=== PATIENT | female | born 1940 | race Caucasian/White ===

== ENCOUNTER → 2017-01-10 | Outpatient (CLI) | payer MEDICARE, OTHER ==
[~2017-01-10] MED LIST: AMOX875T PO; ASPI-496 PO; CALC500T26 PO; DIPH25CA61 PO; DOCO100C PO; DORZ10DR3 EACHEYE; ESOM40CA PO; ESTR1TAB36 PO; GINK60TA PO; LACT1CAP35 PO; LATA2.5D3 EACHEYE; LEVO100T PO; LIOT5TAB6 PO; LUTE20TA PO; MULT-516 PO; ONDA4TAB7 PO; POTA99TA8 PO; TIMO5DRO5 EACHEYE; VITA1TAB3 PO; [UNRECOGNIZED DRUG - CODE] PO; glaucoma eye drops EACHEYE; mucinex PO
== END | disposition home or self-care (01) ==
LOC: STAR 09:51
PROVIDERS: ATTEND Orthopaedic Surgery
DX: Z01.810 Encounter for preprocedural cardiovascular examination (principal)
CPT/HCPCS: 93005

== ENCOUNTER 2017-01-15 05:19 | Day surgery (SDC) | payer MEDICARE ==
[2017-01-10 10:30] VITALS: BP 114/69
[~2017-01-15] VITALS: Ht 166.4 cm; Wt 65.0 kg
[2017-01-15] MEDS ORDERED: LACTATED RINGERS 1,000 ML IV SCH (05:55)
[2017-01-15] MEDS ORDERED: LIDOCAINE 1%, 2ML SQ PRN (06:00)
[2017-01-15] MEDS ORDERED: BUPIVACAINE/PF 0.5% ONE (06:11)
[2017-01-15] MEDS ORDERED: BACITRACIN 50,000 UNIT ONE (06:12)
[2017-01-15] MEDS ORDERED: BUPIVACAINE/PF-EPI 0.25% 1:200K ONE (06:12)
[2017-01-15] MEDS ORDERED: LIDOCAINE/PF 1%, 30ML ONE (06:12)
[2017-01-15] MEDS ORDERED: FENTANYL PF 250 MCG/5ML ONE (06:48)
[2017-01-15] MEDS ORDERED: MIDAZOLAM 1 MG/ML, 2ML ONE (06:49)
[2017-01-15] MEDS ORDERED: DEXAMETHASONE 4 MG/ML, 1ML ONE (07:06)
[2017-01-15] MEDS ORDERED: CEFAZOLIN 1,000 MG ONE (07:06)
[2017-01-15] MEDS ORDERED: ONDANSETRON 2MG/ML, 2ML ONE (07:06)
[2017-01-15] MEDS ORDERED: PROPOFOL 10 MG/ML, 20ML ONE (07:06)
[2017-01-15] MEDS ORDERED: FENTANYL PF 100 MCG/2ML IV PRN (08:00)
[2017-01-15] MEDS ORDERED: ONDANSETRON 2MG/ML, 2ML IVPush PRN (08:00)
[2017-01-15] MEDS ORDERED: MEPERIDINE/PF 25MG/0.5ML IVPush PRN (08:00)
[2017-01-15] MEDS ORDERED: hydrALAzine 20 MG/ML, 1ML IV PRN (08:00)
[2017-01-15] MEDS ORDERED: OXYcodone 5 MG/5 ML ORAL.SOL UDC PO PRN (08:00)
[2017-01-15] MEDS ORDERED: ACETAMINOPHEN 325 MG TABLET PO PRN (08:00)
[2017-01-15] MEDS ORDERED: LABETALOL 5MG/ML, 20ML IV PRN (08:00)
[2017-01-15] MEDS ORDERED: PROMETHAZINE 25 MG/ML, 1ML IV PRN (08:00)
[2017-01-15] MEDS ORDERED: MIDAZOLAM 1 MG/ML, 2ML IV PRN (08:00)
[2017-01-15] MEDS ORDERED: METOCLOPRAMIDE 5 MG/ML, 2ML IV PRN (08:00)
[2017-01-15] MEDS ORDERED: HYDROmorphone 1 MG/ML, 1ML IV PRN (08:00)
== END 2017-01-15 09:45 | disposition home or self-care (01) ==
LOC: OUT 05:19
PROVIDERS: ATTEND Orthopaedic Surgery
DX: G56.03 Carpal tunnel syndrome, bilateral upper limbs (principal); I48.91 Unspecified atrial fibrillation; Z90.13 Acquired absence of bilateral breasts and nipples; Z85.3 Personal history of malignant neoplasm of breast; Z85.118 Personal history of other malignant neoplasm of bronchus and lung; Z87.891 Personal history of nicotine dependence
CPT/HCPCS: 29848; J0690; J1100; J2250; J2405; J2704; J3010; J3490